=== PATIENT | male | born 1955 | race Caucasian/White ===

== ENCOUNTER 2017-02-22 20:11 | Emergency (ER) | payer MEDICARE, OTHER ==
[~2017-02-22] VITALS: Ht 180.3 cm; Wt 85.7 kg
[2017-02-22 20:22] VITALS: BP 134/81; PULSE 65; RESP 16; TEMP 98.3; O2SAT 99
--- NOTE | 2017-02-22 20:38 | PD ---
HPI Chief Complaint: Bite or Sting Time Seen by Provider: 20:38 Travel History International Travel<30 days: No Contact w/Intl Traveler<30days: No Traveled to known affect area: No History of Present Illness HPI 61 year old [id number] male presents to the ED for evaluation of dog bite to bilateral hands. He states he was attempting to break up a fight between his dog and a neighbor's dog. The event occurred just before arrival. He denies numbness, tingling, weakness, limitations to range of motion or loss of strength of bilateral hands. Unsure of the date of his last tetanus immunization. Patient states that he washed his hands thoroughly and applied Band-Aids to the area before presentation. Patient states his dog is up-to- date on his immunizations. He states that the neighbor said that her dog is also up to date on immunizations. PFSH Social History Tobacco Use: No Allergies-Medications (Allergen,Severity, Reaction): Coded Allergies: No Known Allergies (Unverified , 02/22/17) Reported Meds & Prescriptions Reported Meds & Active Scripts Active Augmentin (Amoxicillin-Clavulanate) 875-125 mg Tab 875 Mg PO BID 10 Days not for use in CrCl <30 ml/min. Reported Primidone 50 Mg Tab 50 Mg PO HS Trazodone (Trazodone HCl) 100 Mg Tab 100 Mg PO HS Effexor (Venlafaxine HCl) 75 Mg Tab 75 Mg PO DAILY Tamsulosin (Tamsulosin HCl) 0.4 Mg Cap 0.4 Mg PO HS Loratadine 10 Mg Tab 10 Mg PO DAILY Fentanyl Patch 72 HR (Fentanyl) 50 Mcg/Hr Patch 50 Mcg T-DERMAL Q72H Remove old patch when new one placed. Omeprazole 20 Mg Tab 40 Mg PO DAILY Simvastatin 20 Mg Tab 20 Mg PO DAILY Metoprolol Succinate ER 24 HR (Metoprolol Succinate) 25 Mg Tab 25 Mg PO DAILY Review of Systems Except as stated in HPI: all other systems reviewed are Neg Physical Exam Narrative GENERAL: Well-nourished, well-developed white male in no acute distress. SKIN: Left hand: 3 subcentimeter punctures distributed over the radial aspect of the posterior hand. The thumb nail has a small subungual hematoma with a superficial skin tear at the proximal nail fold. There is a 0.75 cm laceration on the lateral thenar eminence, palmar aspect. There is a subcentimeter puncture on the medial aspect of the thenar eminence. There is superficial skin tears to the shasta of the third and fourth digits. Right hand: 1 cm laceration on the distal, lateral aspect of the DIP joint of the left thumb. Subcentimeter laceration on the proximal, medial aspect of the thumb between the DIP and MP joint. 2 cm superficial abrasion on the posterior aspect of the second second digit between the MP and PIP joints. Small, mild ecchymosis on the palmar aspect of the second digit. HEAD: Normocephalic. EYES: No scleral icterus. No injection or drainage. NECK: Supple, trachea midline. No JVD or lymphadenopathy. CARDIOVASCULAR: Regular rate and rhythm without murmurs, gallops, or rubs. RESPIRATORY: Breath sounds equal bilaterally. No accessory muscle use. GASTROINTESTINAL: Abdomen soft, non-tender, nondistended. MUSCULOSKELETAL: No cyanosis, or edema. 2+ radial pulses bilaterally. Mild tenderness to palpation in the areas of laceration/ puncture bilaterally. Strong finger to thumb opposition on all digits bilaterally. Patient retains active, painless flexion and extension of the bilateral wrists. Patient is able to flex and extend the fingers of the bilateral hands. Cap refill less than 2 seconds on each digit bilaterally. Sensation intact to light touch distally on each digit bilaterally. BACK: Nontender without obvious deformity. No CVA tenderness. Data Data Last Documented VS Vital Signs Date Time Temp Pulse Resp B/P Pulse Ox O2 Delivery O2 Flow Rate FiO2 02/22/17 20:22 98.3 65 16 134/81 99 Room Air Orders Tetanus/Diphtheria Tox Adult (Tetanus/Di (02/22/17 20:45) Amoxicil-Clavulanate (Augmentin) (02/22/17 20:45) MDM Medical Decision Making Medical Screen Exam Complete: Yes Emergency Medical Condition: Yes Differential Diagnosis Dog bite versus puncture wound versus laceration versus the need for tetanus immunization versus other Narrative Course 61 year old [id number]-[id number] male presents to the ED for evaluation of dog bite to bilateral hands. He states he was attempting to break up a fight between his dog and a neighbor's dog. The event occurred just before arrival. He denies numbness, tingling, weakness, limitations to range of motion or loss of strength of bilateral hands. Unsure of the date of his last tetanus immunization. Patient states that he washed his hands thoroughly and applied Band-Aids to the area before presentation. He believes that both dogs are up-to -date on her shots. Vitals reviewed. Physical exam reveals multiple puncture wounds of bilateral hands, see physical exam for full details. 2+ DP pulses bilaterally. Patient retains full, active, painless range of motion of the wrists and fingers bilaterally. Strong finger to thumb opposition with each digit bilaterally. Neurovascularly intact bilaterally. The patient's hands were soaked in Betadine for approximately 20 minutes. His tetanus immunization was updated. He was provided a prescription for Augmentin 875 twice a day 10 days. First dose administered in the ED. He is instructed to take the medications as prescribed, return to the ED in 48 hours for wound evaluation, keep the wounds clean, dry and covered. He indicated understanding of the instructions and is amenable to plan of care. Patient is stable and discharged home. Diagnosis Primary Impression: Animal bite of hand Qualified Code: S61.459A - Animal bite of hand, unspecified laterality, initial encounter Additional Impression: Need for immunization against tetanus alone Referrals: Primary Care Physician Patient Instructions: Animal Bite (ED), General Instructions Additional Instructions: Keep the wounds clean, dry and covered. Take antibiotics as prescribed, even if symptoms resolve. Hcfz-spy-wzaquuu pain medications as directed on label, as needed for pain. Return to the ED in 48 hours for wound recheck. Follow-up with the primary care provider. Return to the ED for any urgent or emergent medical condition. Med/Other Pt SpecificInfo: Prescription(s) given Scripts Amoxicillin-Clavulanate (Augmentin)875-125 mg Ben860 Mg PO BID 10 Days Ref 0 not for use in CrCl <30 ml/min. Prov:Elise Tran MD 02/22/17 Disposition: 01 DISCHARGE HOME Condition: Stable Kimberly Cain Feb 22, 2017 20:38
[2017-02-22] MEDS ORDERED: AMOXICILLIN/CLAVULANATE K 875 MG TAB PO ONE (20:45)
[2017-02-22] MEDS ORDERED: TETANUS/DIPHTHERIA TOXOID ADULT 0.5 ML VIAL IM ONE (20:45)
[2017-02-22] MEDS ORDERED: FENT50DI T-DERMAL (20:46)
[2017-02-22] MEDS ORDERED: OMEP20TA PO (20:46)
[2017-02-22] MEDS ORDERED: METO25TA6 PO (20:46)
[2017-02-22] MEDS ORDERED: PRIM50TA5 PO (20:46)
[2017-02-22] MEDS ORDERED: SIMV20TA PO (20:46)
[2017-02-22] MEDS ORDERED: LORA10TA PO (20:46)
[2017-02-22] MEDS ORDERED: TRAZ100T4 PO (20:46)
[2017-02-22] MEDS ORDERED: TAMS0.4C4 PO (20:46)
[2017-02-22] MEDS ORDERED: VENL75TA PO (20:46)
[2017-02-22] MEDS ORDERED: AUGM875T PO (21:13)
== END 2017-02-22 21:56 | disposition home or self-care (01) ==
LOC: PHEFT 20:11
DX: S61.451A Open bite of right hand, initial encounter (principal); S61.452A Open bite of left hand, initial encounter; W54.0XXA Bitten by dog, initial encounter; Z23 Encounter for immunization
CPT/HCPCS: 90471; 90714

== ENCOUNTER 2017-02-24 13:51 | Emergency (ER) | payer MEDICARE, OTHER ==
[~2017-02-24] VITALS: Ht 180.3 cm; Wt 85.5 kg
[~2017-02-24 13:51] MED LIST: AUGM875T PO; FENT50DI T-DERMAL; LORA10TA PO; METO25TA6 PO; OMEP20TA PO; PRIM50TA5 PO; SIMV20TA PO; TAMS0.4C4 PO; TRAZ100T4 PO; VENL75TA PO
[2017-02-24 13:54] VITALS: BP 117/77; PULSE 58; RESP 16; TEMP 98.6; O2SAT 97
--- NOTE | 2017-02-24 14:16 | PD ---
HPI Chief Complaint: Wound/Suture/Staple Re-Check Time Seen by Provider: 14:07 Travel History International Travel<30 days: No Contact w/Intl Traveler<30days: No Traveled to known affect area: No History of Present Illness HPI Patient comes in for a wound recheck of dog bites bilateral hands that occurred 2 days ago. Patient reports is been taking the antibiotics as prescribed and keeping them clean by washing them using soap and water. Continues to have pain over the palmar aspect left hand over the first metacarpal. Patient reports pain is unchanged from initial onset and is worse with flexion of his left thumb. Denies any numbness or tingling. Denies any other concerns. PFSH Past Medical History Anxiety: Yes High Cholesterol: Yes GERD: Yes Hypertension: Yes Musculoskeletal: Yes (CHRONIC BACK/NECK PAIN) Past Surgical History Tonsillectomy: Yes Social History Alcohol Use: Yes (OCCAS) Tobacco Use: No Substance Use: No Allergies-Medications (Allergen,Severity, Reaction): Coded Allergies: No Known Allergies (Unverified , 02/24/17) Reported Meds & Prescriptions Reported Meds & Active Scripts Active Augmentin (Amoxicillin-Clavulanate) 875-125 mg Tab 875 Mg PO BID 10 Days not for use in CrCl <30 ml/min. Reported Primidone 50 Mg Tab 50 Mg PO HS Trazodone (Trazodone HCl) 100 Mg Tab 100 Mg PO HS Effexor (Venlafaxine HCl) 75 Mg Tab 75 Mg PO DAILY Tamsulosin (Tamsulosin HCl) 0.4 Mg Cap 0.4 Mg PO HS Loratadine 10 Mg Tab 10 Mg PO DAILY Fentanyl Patch 72 HR (Fentanyl) 50 Mcg/Hr Patch 50 Mcg T-DERMAL Q72H Remove old patch when new one placed. Omeprazole 20 Mg Tab 40 Mg PO DAILY Simvastatin 20 Mg Tab 20 Mg PO DAILY Metoprolol Succinate ER 24 HR (Metoprolol Succinate) 25 Mg Tab 25 Mg PO DAILY Review of Systems Except as stated in HPI: all other systems reviewed are Neg Physical Exam Narrative GENERAL: Well-developed, well nourished, in no acute distress, and non-ill appearing. SKIN: Focused skin assessment warm and dry. Well-healing dog bite wounds noted bilateral hands without crepitus or drainage. Neurovascular intact distally. HEAD: Atraumatic. Normocephalic. EYES: Pupils equal and round. EOMI. No scleral icterus. No injection or drainage. ENT: No nasal bleeding or discharge. Mucous membranes pink and moist. NECK: Trachea midline. Supple. No nuclear rigidity. CARDIOVASCULAR: Radial pulses 2+, intact, and equal bilaterally. Capillary refill less than 2 seconds. RESPIRATORY: No accessory muscle use. No respiratory distress. MUSCULOSKELETAL: No obvious deformities. No clubbing. No cyanosis. Soft tissue swelling noted over the first metacarpal left hand. Slight decrease range of motion left thumb with flexion secondary to pain. NEUROLOGICAL: Awake and alert. No obvious cranial nerve deficits. Motor grossly within normal limits. Normal speech. PSYCHIATRIC: Appropriate mood and affect; insight and judgment normal. Data Data Last Documented VS Vital Signs Date Time Temp Pulse Resp B/P Pulse Ox O2 Delivery O2 Flow Rate FiO2 02/24/17 15:24 62 16 120/76 97 02/24/17 13:54 98.6 Orders Hand, Complete ([id number]) (02/24/17 ) [facility] Medical Decision Making Medical Screen Exam Complete: Yes Emergency Medical Condition: Yes Differential Diagnosis Wound infection, recheck, fracture, foreign body, other Narrative Course Patient seen and examined. Patient continues to complain of pain over first metacarpal left hand. Will obtain x-rays to rule out fracture as there was no imaging done initial visit. I suspect the foreign body noted on x-ray related to patient's current dog bites as patient has no wounds over the area of the foreign body noted and no pain over the area to palpation. I discussed all findings including the noted foreign body on x-ray with patient. The patient was given signs and symptom warnings for infection, such as increasing pain, redness, swelling, associated heat, pus or fever. The patient was warned of possible unseen foreign body and instructed to return immediately if signs or symptoms develop. The patient was given instructions for timely follow. The patient agreed with plan of care. Patient in no obvious distress upon re-evaluation. All pertinent Radiology result(s) discussed with patient. Any questions/concerns in reference to patient diagnosis/condition discussed and clarified prior to patient's discharge. Reinforced sheer importance of close follow up with patient's primary physician or primary care clinic. Instructed patient to return to ED immediately, if symptoms return/worsen. Pt showed understanding of above instructions. Further instructions and recommendations were detailed in discharge paperwork. Pt ambulated without difficulty out of ED at discharge. Diagnosis Primary Impression: Encounter for wound re-check Patient Instructions: Animal Bite (ED), General Instructions Additional Instructions: Follow-up with your primary care physician and/or hand surgeon this week for reevaluation. Take all medication as previously prescribed. Apply ice to affected area 20 minutes per hour as needed for pain and swelling. Elevate affected hand to decrease pain and swelling. Use [id number] Tylenol and/ or ibuprofen as needed for pain. Follow instructions on the packaging. Keep wounds dry and clean as possible using soap and water. Use Neosporin to promote healing. Do not soak wounds. Return to the emergency department if symptoms get worse. Disposition: 01 DISCHARGE HOME Condition: Stable Joseph Brown Feb 24, 2017 14:16
--- NOTE | 2017-02-24 14:47 | RADHPO ---
EXAM DATE/TIME: 02/24/2017 14:13 [facility] COMPARISON: No previous studies available for comparison. INDICATIONS : Left hand pain post dog bite three days ago. MEDICAL HISTORY : Left wrist fracture. SURGICAL HISTORY : Left wrist ORIF. ENCOUNTER: Initial ACUITY: 3 days PAIN SCORE: 7/10 LOCATION: Left wrist. FINDINGS: Evidence for previous surgery is noted. There is generalized soft-tissue swelling evident. There is a radiopaque foreign body in the web space of the 3rd and 4th digits. This is on the ventral surfac e of the hand. Alignment is anatomic. A fracture is not appreciated. CONCLUSION: 1. Radiopaque foreign body of uncertain significance. 2. Negative for fracture. Taiwo Brennan MD FACR on February 24, 2017 at 14:41 Board Certified Radiologist. This report was verified electronically.
[2017-02-24 15:24] VITALS: BP 120/76
== END 2017-02-24 15:24 | disposition home or self-care (01) ==
LOC: PHED 13:51
DX: S61.452D Open bite of left hand, subsequent encounter (principal); S61.451D Open bite of right hand, subsequent encounter; W54.0XXD Bitten by dog, subsequent encounter; F41.9 Anxiety disorder, unspecified; E78.00 Pure hypercholesterolemia, unspecified; K21.9 Gastro-esophageal reflux disease without esophagitis; I10 Essential (primary) hypertension
CPT/HCPCS: 73130; 99283